=== PATIENT | male | born 1955 | race Caucasian/White ===

== ENCOUNTER 2017-07-12 16:01 | Outpatient (CLI) | payer BC ==
[2017-07-12 16:24] LABS: #Eosinphils 0.2 thou/uL (0.0-0.7); #Lymphocytes 1.6 thou/uL (1.20-3.40); #Monocytes 0.4 thou/uL (0.11-0.59); #Neutrophils 3.5 thou/uL (1.40-6.50); %Basophils 0.7 % (0.0-1.0); %Eosinophils 2.7 % (0.0-10.0); %Lymphocytes 28.2 % (21.0-51.0); %Monocytes 6.3 % (0.0-10.0); Hemoglobin 16.2 g/dL (14.0-18.0); Mean Corpuscular HGB CONC 33.6 g/dL (32.0-36.0); Mean Corpuscular Hemoglobin 32.5 pg (27.0-31.0); Mean Corpuscular Volume 96.9 fl (80.0-94.0); Platelet Count 177 thou/uL (130-400); RBC Distribution Width 12.3 % (11.5-14.5); Red Blood Cell (RBC) Count 4.98 mill/uL (4.70-6.10); White Blood Cell (WBC) Count 5.7 thou/uL (4.8-10.8)
[2017-07-12 16:50] LABS: Anion Gap 14 mmol/L (10-20); BUN (Urea Nitrogen) 15 mg/dL (8.4-25.7); Calc. Creatinine Clearance 0 mL/min (70-130); Calcium 9.4 mg/dL (7.8-10.44); Carbon Dioxide 26 mmol/L (23-31); Chloride 105 mmol/L (98-107); Estimated GFR-MDRD 65; Glucose 92 mg/dL (80-115); Potassium 4.6 mmol/L (3.5-5.1); Sodium 140 mmol/L (136-145)
== END 2017-07-12 16:02 | disposition home or self-care (01) ==
LOC: LABBT 16:01
PROVIDERS: ATTEND Specialist
DX: Z01.810 Encounter for preprocedural cardiovascular examination (principal); Z01.812 Encounter for preprocedural laboratory examination; K40.20 Bilateral inguinal hernia, without obstruction or gangrene, not specified as recurrent
CPT/HCPCS: 80048; 85025; 93005; 93010

== ENCOUNTER 2017-07-18 05:50 | Day surgery (SDC) | payer BC ==
[2017-07-12 16:26] VITALS: BMI 29.1
[2017-07-18] MEDS ORDERED: Ketorolac Tromethamine 30 MG/ML VIAL ONE (06:02)
[2017-07-18] MEDS ORDERED: CEFAZOLIN/Water 2 GM/20 ML SYRINGE ONE (06:02)
[2017-07-18] MEDS ORDERED: Midazolam HCl 2 mg/2 ml Vial ONE (06:11)
[2017-07-18] MEDS ORDERED: Fentanyl 100 MCG/2 ML VIAL ONE ×2 (06:11→11:07)
[2017-07-18] MEDS ORDERED: Bupivacaine PF 0.5% 30 ML VIAL ONE (06:31)
[2017-07-18] MEDS ORDERED: Lidocaine 2% w/Epinephrine 1:200K 20 ML VIAL ONE ×2 (06:31→09:22)
[2017-07-18] MEDS ORDERED: HYDROcodone/Acetaminophen 5/325 mg Tablet ONE (12:38)
[2017-07-18] MEDS ORDERED: Lidocaine 1% PF 5 ML VIAL ONE (15:00)
[2017-07-18] MEDS ORDERED: Glycopyrrolate 0.2 MG/ML 5 ML SYRINGE ONE (15:00)
[2017-07-18] MEDS ORDERED: Dexamethasone 20 MG/5 ML VIAL ONE (15:00)
[2017-07-18] MEDS ORDERED: Ondansetron HCl/PF 4 MG/2 ML Vial ONE (15:00)
[2017-07-18] MEDS ORDERED: PROPOFOL 200 MG/20 ML VIAL ONE (15:00)
--- NOTE | 2017-07-19 11:30 | OP ---
DATE OF PROCEDURE: 07/18/2017 PREOPERATIVE DIAGNOSIS: Bilateral inguinal hernia. POSTOPERATIVE DIAGNOSES: Bilateral inguinal hernia with finding of a direct inguinal hernia on the r ight and a relatively small indirect hernia on the left, and bilateral cord lipomas. SURGEON: Jose Nguyen M.D. ANESTHESIA: General endotracheal. INDICATIONS: The patient is a 62-year-old white male. He presented for evaluation of hernia and was found to have an easily palpable right inguinal hernia. He had a smaller, but still palpable left i nguinal hernia. He is taken to the operating room at this time for repair. DESCRIPTION OF OPERATION: Informed consent was obtained. The patient was taken to the operating jo m where general endotracheal anesthesia was obtained with the patient in supine position. Valdivia cath eter was placed. Abdomen was trimmed of hair, prepped with ChloraPrep and draped in sterile fashion. Local anesthetic was infiltrated using 0.25% Marcaine with epinephrine. Transverse supraumbilical incision was created through which a Veress needle was passed into the peritoneal cavity and pneumope ritoneum established using carbon dioxide up to a pressure of 15 mmHg. A 12 mm port was passed throu gh this same incision and camera was passed through this port. Under direct vision, two additional 8 mm robotic ports were placed on either side of midline at about the supraumbilical level. The robot was docked to the ports and the camera and the operation was co ntinued from the robotic console. Initial exploration revealed obvious direct inguinal hernia on the right. On the left, there was shakir mayelin a peritoneal inversion in the typical area of an indirect hernia. This was not very large and w as typical, was consistent with a relatively small/early inguinal hernia. Attention was turned to the right hand side. A transverse peritoneal incision was created and a prep eritoneal dissection was carried inferiorly. The pubic tubercle was visualized on the medial aspect and dissection was carried below the iliopubic tract laterally. The peritoneum was carefully dissect ed off the underlying cord structures and vas deferens as they bifurcated. The direct space was diss ected. There was an easily visualized hernia. Preperitoneal fatty tissue was dissected out of the h ernia sac. A large right-sided 3DMax mesh patch was obtained and passed into the abdominal cavity. I then posit ioned this within the preperitoneal space where it fit nicely. It was secured in place with 3 interr upted sutures of 3-0 Vicryl, placing one on the pubic tubercle, one on the anterior aspect medial to the epigastric vessels, and one laterally on the anterior aspect of the tail of the mesh patch. This afforded excellent coverage over the defect with wide coverage over the area of concern. The perito neum was then closed with a running suture of 3-0 Stratafix. Attention was turned to the left side. An essentially mirror image incision and dissection was francine ed out. There was noted to be a small indirect hernia, which was easily dissected off of the underly ing cord structures. There may have been a small early direct weakness/defect as well, and this was also dissected. After this base was fully developed, a left 3DMax mesh patch was obtained large size and was secured in a mirror image fashion to the right with 3 interrupted sutures of 3-0 Vicryl. Th e peritoneum was closed in a similar fashion. Both sides were inspected and there was found to be no evidence of any bleeding or hematoma on either side. The fascial defect at the 12 mm port site was closed with 0 Vicryl suture using a GraNee needle. All ports and instruments were removed under direct vision. Pneumoperitoneum was carefully evacuated. A 0.25% percent Marcaine with epinephrine was infiltrated in each port site. Skin edges approximated with 4-0 Monocryl subcuticular suture and Dermabond was placed externally. Not mentioned above, is that the bilateral cord lipomas were visualized and dissected off the cord st ructures. These lipomas were incorporated into the peritoneal closure on each side to minimize chanc es of further fatty herniation. The patient tolerated the procedure well and was taken to recovery r oom in stable condition.
== END 2017-07-18 13:18 | disposition home or self-care (01) ==
LOC: SDC 05:50
PROVIDERS: ATTEND Specialist
PROC: 8E0W4CZ Robotic Assisted Procedure of Trunk Region, Percutaneous Endoscopic Approach (ICD-10-PCS; principal; 2017-07-18)
PROC: 0YUA4JZ Supplement Bilateral Inguinal Region with Synthetic Substitute, Percutaneous Endoscopic Approach (ICD-10-PCS; principal; 2017-07-18)
DX: K40.20 Bilateral inguinal hernia, without obstruction or gangrene, not specified as recurrent (principal); D17.6 Benign lipomatous neoplasm of spermatic cord; Z88.5 Allergy status to narcotic agent; Z98.890 Other specified postprocedural states
CPT/HCPCS: 76000; 96374; C1781; J0131; J1100; J1885; J2001; J2250; J2405; J2704; J3010; S0020